=== PATIENT | male | born 1975 | race Caucasian/White ===

== ENCOUNTER 2018-10-30 17:11 | Emergency (ER) | payer SELFPAY ==
[~2018-10-30] VITALS: Ht 188 cm; Wt 90.9 kg
[2018-10-30 17:47] VITALS: BP 137/95; Ht 188 cm; Wt 90.9 kg
[2018-10-30] MEDS ORDERED: PROZAC40 MG PO (17:48)
[2018-10-30] MEDS ORDERED: DEPAKOTE250 MG PO (17:49)
== END 2018-10-30 20:05 | disposition left against medical advice (07) ==
LOC: D.ER 17:11
DX: Z76.0 Encounter for issue of repeat prescription (principal)

== ENCOUNTER 2019-04-09 11:42 | Emergency (ER) | payer MEDICAID ==
[~2019-04-09] VITALS: Ht 188 cm; Wt 102.6 kg
[~2019-04-09 11:42] MED LIST: DEPAKOTE250 MG PO; PROZAC40 MG PO
[2019-04-09 12:18] VITALS: Ht 188 cm; Wt 102.6 kg
[2019-04-09] MEDS ORDERED: IBUPROFEN800 MG PO (13:28)
[2019-04-09 13:51] VITALS: BP 132/67
== END 2019-04-09 13:51 | disposition home or self-care (01) ==
LOC: D.ER 11:42
DX: S83.91XA Sprain of unspecified site of right knee, initial encounter (principal); X58.XXXA Exposure to other specified factors, initial encounter; Y93.9 Activity, unspecified; Y92.9 Unspecified place or not applicable

== ENCOUNTER 2019-04-11 19:13 | Emergency (ER) | payer MEDICAID ==
[~2019-04-11] VITALS: Ht 188 cm; Wt 103.3 kg
[~2019-04-11 19:13] MED LIST changes: +IBUPROFEN800 MG PO
[2019-04-11 19:18] VITALS: Ht 188 cm; Wt 103.3 kg
[2019-04-11] MEDS ORDERED: REMERON (19:19)
--- NOTE | 2019-04-11 19:59 | NUR ---
DR STEWART NOTIFIED AND REVIEWED PT'S BEHAVIOR AND ASSESSMENT. PT IS LOW RISK. RESOURCES GIVEN AND REVIEWED WITH PATIENT. HE VERBALIZES UNDERSTANDING.
[2019-04-11] MEDS ORDERED: VOLTAREN75 MG PO (21:01)
[2019-04-11 21:31] VITALS: BP 113/82
== END 2019-04-11 21:22 | disposition home or self-care (01) ==
LOC: D.ER 19:13
DX: M25.561 Pain in right knee (principal); S89.91XA Unspecified injury of right lower leg, initial encounter

== ENCOUNTER → 2019-04-30 08:31 | Outpatient (CLI) | payer MEDICAID ==
[2019-04-11 19:18] VITALS: BMI 29.2
[~2019-04-30 08:31] MED LIST changes: +REMERON; +VOLTAREN75 MG PO
== END | disposition home or self-care (01) ==
LOC: D.MRI 08:30
PROVIDERS: ATTEND Nurse Practitioner Family
DX: M25.561 Pain in right knee (principal)

== ENCOUNTER 2019-05-08 14:29 | Emergency (ER) | payer MEDICAID ==
[~2019-05-08] VITALS: Ht 188 cm; Wt 100.0 kg
[2019-05-08 14:42] VITALS: Ht 188 cm; Wt 100.0 kg
[2019-05-08 15:17] LABS: BASOPHILS 0.2 % (0-2); EOSINOPHILS 0.8 % (0-7); HEMOGLOBIN 14.9 g/dL (13.5-17.5); IMMATURE GRANULOCYTES 0.1 % (0-5); LYMPHOCYTES 31.7 % (15-50); MCH 30.8 pg (26.0-34.0); MCHC 34.7 g/dL (31.0-37.0); MEAN PLATELET VOLUME 10.8 fL (7.4-10.4); MONOCYTES 10.9 % (2-11); NEUTROPHILS 56.3 % (40-80); PLATELET COUNT 237 10x3/uL (130-400); RBC 4.83 10x6/uL (4.20-6.10); RDW 11.7 % (11.5-14.5); WBC 9.8 10x3/uL (4.8-10.8)
[2019-05-08 15:28] LABS: INR 0.96 (0.85-1.17); PROTIME 12.7 SECONDS (11.6-15.0)
[2019-05-08 15:29] LABS: APTT 29.1 SECONDS (22.8-39.4)
[2019-05-08 15:30] LABS: CALC OSMOLALITY 279 mosm/kg (275-300); CALCIUM 8.6 mg/dL (8.5-10.1); CARBON DIOXIDE 30.3 mmol/L (21.0-32.0); CHLORIDE - SERUM 102 mmol/L (98-107); CREATININE - SERUM 1.1 mg/dL (0.6-1.3); GLUCOSE 97 mg/dL (74-106); POTASSIUM - SERUM 3.7 mmol/L (3.5-5.1); SODIUM 139 mmol/L (136-145); UREA NITROGEN 17 mg/dL (7-18); eGFR NON AFRICAN AMERICAN 77 mL/min (90-120)
[2019-05-08 15:47] LABS: ALKALINE PHOSPHATASE 63 U/L (30-120); ALT (SGPT) 39 U/L (10-68); BILIRUBIN - TOTAL 0.64 mg/dL (0.2-1.3); CKMB 3.5 U/L (0.0-3.6); CREATINE KINASE 287 UL (21-232); MAGNESIUM - SERUM 2.3 mg/dL (1.8-2.4); PROTEIN - SERUM 7.8 g/dL (6.4-8.2)
[2019-05-08 15:48] LABS: TROPONIN-I < 0.017 ng/mL (0.000-0.060)
[2019-05-08 16:18] VITALS: BP 123/84
== END 2019-05-08 17:36 | disposition left against medical advice (07) ==
LOC: D.ER 14:29
PROVIDERS: Family Medicine
DX: R07.9 Chest pain, unspecified (principal); R74.8 Abnormal levels of other serum enzymes; Z53.29 Procedure and treatment not carried out because of patient's decision for other reasons